=== PATIENT | male | born 1950 | race Caucasian/White ===

== ENCOUNTER 2017-02-24 10:29 | Emergency (ER) | payer MEDICARE, BC ==
--- NOTE | 2017-02-24 11:27 | EDM.PDOC ---
ED HPI GENERAL MEDICAL PROBLEM - General Chief Complaint: Upper Extremity Injury/Pain Stated Complaint: RIGHT HAND IS SORE AND RED Time Seen by Provider: 02/24/17 11:13 Source of Information: Reports: Patient History Limitations: Reports: No Limitations - History of Present Illness INITIAL COMMENTS - FREE TEXT/NARRATIVE: 67 yo male presents to ER with swollen right index finger. 4 days ago was pulling weeds and got a thorn in finger. yesterday was seen in and small thorn was removed and he was placed on Keflex. He has had 4 doses of antibiotic. This AM swelling has increased and finger is throbbing and the pain is radiating into MP joint and 2nd metacarpal. denies pain with wrist movement. Denies, headache fever or chills. Generally healthy. Will be in the area until Sunday then he will return to [facility]. Left Pain Score (Numeric/FACES): 5 - Related Data Allergies Allergy/AdvReac Type Severity Reaction Status Date / Time No Known Allergies Allergy Verified 02/24/17 10:56 Past Medical History Cardiovascular History: Reports: High Cholesterol, Hypertension Endocrine/Metabolic History: Reports: Hypothyroidism Oncologic (Cancer) History: Reports: Prostate - Past Surgical History Male Surgical History: Reports: Prostatectomy Other Musculoskeletal Surgeries/Procedures:: BILAT FOOT GREAT TOE FUSION Social & Family History - Tobacco Use Smoking Status *Q: Unknown Ever Smoked Review of Systems - Review of Systems Review Of Systems: See Below Constitutional: Denies: Chills, Fever Respiratory: Denies: Shortness of Breath, Wheezing Cardiovascular: Denies: Chest Pain ED EXAM, GENERAL - Physical Exam Exam: See Below Exam Limited By: No Limitations General Appearance: Alert, WD/WN, No Apparent Distress Respiratory/Chest: No Respiratory Distress, Lungs Clear. No: Crackles, Rhonchi , Wheezing Cardiovascular: Normal Peripheral Pulses, Regular Rate, Rhythm Extremities: Other (right index finger at PIP edema pulling skin tight, normal temp, no erythema, fluctuance at PIP) ED TRAUMA EXTREMITY PROCEDURES - I&D Site: right index finger Skin Prep: Isopropyl Alcohol (Alcohol) Local Anesthesia: Lidocaine: 1% Plain Local Anesthetic Volume: 2cc Area Incised With: 11 Blade Drainage: Clear, Bloody, Small Amount Probed to Break Up Loculations: No Packed With: None Complications: No Progress/Comments: area was cleaned with alcohol. anesthetized with 1% lidocaine. 18 gauge needle utilized to evacuate small amounts of bloody SA drainage from fluctuate area on PIP joint near puncture wound. 11 blade scalpel utilized to make 2 mm pie shaped incision. small amount of additional bloody SA drainage evacuated with manual pressure. pt tolerated well Course - Vital Signs Last Recorded V/S: Last Vital Signs Temp 36.8 C 02/24/17 12:25 Pulse 68 02/24/17 12:25 Resp 18 02/24/17 12:25 BP 181/110 H 02/24/17 12:25 Pulse Ox 98 02/24/17 12:25 - Orders/Labs/Meds Labs: Laboratory Tests 02/24/17 Range/Units 11:39 WBC 8.5 (4.5-11.0) K/uL RBC 4.65 (4.30-5.90) M/uL Hgb 14.7 (12.0-15.0) g/dL Hct 41.8 (40.0-54.0) % MCV 90 (80-98) fL MCH 32 H (27-31) pg MCHC 35 (32-36) % Plt Count 218 (150-400) K/uL Neut % (Auto) 73 H (36-66) % Lymph % (Auto) 16 L (24-44) % [place] % (Auto) 9 H (2-6) % Eos % (Auto) 2 (2-4) % Baso % (Auto) 1 (0-1) % ESR 10 (0-20) mm/hr Meds: Medications Discontinued Medications Generic Name Dose Route Start Last Admin Trade Name Freq PRN Reason Stop Dose Admin Ceftriaxone Sodium 1 gm 02/24/17 12:43 Rocephin IM 02/24/17 12:44 ONETIME ONE Lidocaine HCl 5 ml 02/24/17 11:21 02/24/17 12:41 Xylocaine-Mpf 1% INJECT 02/24/17 11:22 5 ml ONETIME ONE Administration - Re-Assessments/Exams Free Text/Narrative Re-Assessment/Exam: 02/24/17 12:52 evaluated on arrival to ER. WBC normal with no elevation in Sed rate. puncture wound I+Ded with small amount of drainage. IM Rocephin and will switch oral antibiotics to Augmentin. Follow-up with primary care provider on return home Departure - Departure Time of Disposition: 12:49 Disposition: Home, Self-Care 01 Condition: Good Clinical Impression: Cellulitis of finger of right hand - Discharge Information Forms: ED Department Discharge Additional Instructions: Ice as much as possible Ibuprofen 400-800 mg every 6 hours for pain topical antibiotics and keep covered Augmentin 500 mg twice daily stop Keflex. Your received 1 G of Rocephin injection at Emergency room today If you are not markedly better in 48 hour you need to follow-up with your primary care provider. If you develop fever greater then 101, general ill feeling or if pain increases you need to be seen again
[2017-02-24 12:26] VITALS: BP 181/110
[2017-02-24] MEDS ORDERED: cefTRIAXone 1 GM Vial IM ONE (12:43)
[2017-02-24] MEDS ORDERED: Bacitracin Oint 1 GM U/D Packet TOP ONE (12:52)
== END 2017-02-24 13:08 | disposition home or self-care (01) ==
LOC: JP.ED 10:29
DX: L03.011 Cellulitis of right finger (principal); I10 Essential (primary) hypertension; E78.00 Pure hypercholesterolemia, unspecified; E03.9 Hypothyroidism, unspecified; Z85.46 Personal history of malignant neoplasm of prostate; Z90.79 Acquired absence of other genital organ(s); Z98.890 Other specified postprocedural states; X58.XXXA Exposure to other specified factors, initial encounter
CPT/HCPCS: 10060; 36415; 85025; 85651; 96372; 99284; J0696; 99283-25